=== PATIENT | male | born 1955 | race Caucasian/White ===

== ENCOUNTER 2017-02-01 11:41 | Day surgery (SDC) | payer MEDICARE, BC ==
--- NOTE | 2017-01-31 06:14 | CONS ---
DATE OF ADMISSION: 01/14/2016 DATE OF CONSULTATION: TYPE OF CONSULTATION PREOPERATIVE GASTROENTEROLOGY Dear Dr. Newby: I thank you very much for this kind referral. Mr. Maxime Poole is a 61-year-old male patient who has been referred to me for further evaluation of abdominal pain, dysphagia on positive occult b lood in stool. The patient complains of epigastric pain. He has got also difficulty in swallowing. He has been taking omeprazole without any relief of the symptoms. He is not taking any nonsteroid al anti-inflammatory agents. His appetite has been somewhat poor and he states that he has been los ing weight. No history of gallstones. The patient denies any history of liver disease. There is n o change in the bowel habit or rectal bleeding. The patient had a colonoscopy 1 year ago and he had colon polyps removed and they were benign. The patient was also noted to have internal hemorrhoids . He is not a hypertensive or diabetic. No heart disease. The patient is a chronic smoker with ch ronic bronchitis. No kidney disease. Status post appendectomy. He is a chronic smoker. He used t o drink alcohol heavily and now he has stopped drinking. NO HISTORY OF DRUG ALLERGIES. MEDICATIONS: Omeprazole. PHYSICAL EXAMINATION: VITAL SIGNS: He is 5 feet 5 inches tall and weighs 140 pounds. BMI 24, blood pressure 124/78, norm al heart sounds. LUNGS: Clear. ABDOMEN: Patient has got enlarged nodular liver. There are no masses. Normal bowel sounds are hea rd. NEUROLOGIC: Normal neurological exam. IMPRESSION: 1. Upper abdominal pain, not responding to therapy with omeprazole. 2. Dysphagia. 3. Positive occult blood in stool. 4. The patient had a colonoscopy 1 year ago and he had colon polyps removed and they were benign an d he was noted to have hemorrhoids, enlarged liver. Patient had blood tests and abdominal ultrasoun d done 1 year ago, and no definite abnormality was detected. The patient is a chronic smoker with c hronic bronchitis, history of alcohol abuse in the past, status post appendectomy. PLAN: 1. Endoscopic examination for further evaluation. 2. Positive blood in the stool is most likely secondary to hemorrhoids. He had a colonoscopy 1 yea r ago, and he does not need another colonoscopy at this time. The procedure and possible complications were well explained to the patient. He understands and con sents to the procedure. Because of the history of chronic bronchitis. He will need monitored anesthesia care. I thank you once again. With warmest personal regards, Dictated By: KWASI GREEN MD GD/MARINA Conf#: [id number] DID#: [id number] CC: Dr Newby; KWASI GREEN MD;*EndCC*
[~2017-02-01] VITALS: Ht 167.6 cm; Wt 54.2 kg
[~2017-02-01 11:41] MED LIST: UNABLE TO RECALL
[2017-02-01 12:12] VITALS: Ht 167.6 cm; Wt 54.2 kg
[2017-02-01] MEDS ORDERED: OMEP40CA6 PO (12:16)
[2017-02-01 12:34] VITALS: BP 107/61; PULSE 94; RESP 20
[2017-02-01 13:04] VITALS: BP 115/72; PULSE 88; RESP 18
--- NOTE | 2017-02-01 13:06 | OPPN ---
Date/Time of Note Date/Time of Note DATE: 02/01/17 TIME: 13:04 Operative Report Preoperative Diagnosis Abdominal pain chronic heartburn Dysphagia Postoperative Diagnosis Gastroesophageal reflux disease Gastritis with erosions Gastric nodule and biopsies were taken Operation/Procedure Performed Esophagogastroduodenoscopy and biopsy Surgeon see signature line pediatric physician assistant None Anesthesia: other Estimated blood loss: none Transfusion Required none Specimen Gastric mucosal biopsy Grafts/Implants none Complications none KWASI GREEN MD Feb 01, 2017 13:06
--- NOTE | 2017-02-02 07:24 | GILP ---
DATE OF PROCEDURE: NAME OF PROCEDURES: Esophagogastroduodenoscopy and biopsy. SURGEON: Gino Gavin MD PREOPERATIVE DIAGNOSES: 1. Abdominal pain. 2. Chronic heartburn. 3. Dysphagia. POSTOPERATIVE DIAGNOSES: 1. Gastroesophageal reflux disease. 2. Gastritis with erosions. 3. Gastric mucosal biopsies were taken for Helicobacter pylori test. 4. Gastric nodule in the body of the stomach and biopsies were taken for histopathology. INDICATION FOR THE PROCEDURE: Mr. Maxime Poole is a 61-year-old male patient who had upper ab dominal pain and chronic heartburn, not responding to therapy. The patient also had dysphagia. The patient was scheduled for endoscopic examination for further evaluation. The procedure and possible complications are well explained to the patient, he understood and consen peg to the procedure. DESCRIPTION OF PROCEDURE: The upper endoscope was carefully inserted into the esophagus and under d irect vision, it was advanced to the stomach and through the pylorus into the duodenal bulb and desc ending duodenum. FINDINGS: ESOPHAGUS: The patient had gastroesophageal reflux disease. STOMACH: He had gastritis with erosions. Gastric mucosal biopsies were taken for H. pylori test. The patient had a gastric nodule in the body of the stomach and biopsies were taken for histopatholo gy. DUODENUM: Normal. The patient tolerated the procedure very well and there was no complication from the procedure. At the end of the procedure, he was awake with stable vital signs and he was discharged home to the car e of his family. IMPRESSION: Please see postoperative diagnosis. PLAN: 1. Omeprazole 40 mg p.o. q.a.m. 2. Zantac 300 mg p.o. at bedtime. 3. Await H. pylori test report. Dictated By: GINO RAVI/MARINA Conf#: [id number] DID#: [id number]
== END 2017-02-01 18:14 | disposition home or self-care (01) ==
LOC: GIL 11:41
PROVIDERS: ATTEND Internal Medicine Gastroenterology
DX: K21.9 Gastro-esophageal reflux disease without esophagitis (principal); K29.70 Gastritis, unspecified, without bleeding
CPT/HCPCS: 87081; 88305